=== PATIENT | female | born 1990 | race Caucasian/White ===

== ENCOUNTER 2020-05-20 15:17 | Emergency (ER) | payer MEDICAID ==
[~2020-05-20 15:17] MED LIST: ONDA4TAB6 PO
--- NOTE | 2020-05-20 15:35 | NUR ---
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
== END 2020-05-20 18:10 | disposition left against medical advice (07) ==
LOC: ER 15:17
DX: L08.9 Local infection of the skin and subcutaneous tissue, unspecified (principal); Z53.21 Procedure and treatment not carried out due to patient leaving prior to being seen by health care provider